=== PATIENT | female | born 1985 | race Caucasian/White ===

== ENCOUNTER 2022-06-08 07:20 | Outpatient (CLI) | payer BC, SELFPAY ==
--- OUTSIDE RECORDS SUMMARY | 2022-06-08 07:21 | XMS_ITS | Encounter Summary ---
:1985 Author Organization [facility] Address [address] [place] [address] Care Team Providers Name Role Phone Unavailable Primary Care Provider Unavailable Encounter Details Date Type Department Care Team Description 08/05/2013 Hospital Encounter HX [facility] INTERNMED Jhonny Early i, M.D. [address] [place] [phone] (Wo rk) Social History Tobacco Use Types Packs/Day Years Used Date Smoking Tobacco: Never Assessed Sex Assigned at Date Recorded Not on file documented as of this encounter Miscellaneous Notes Miscellaneous - Hannah Early M.D. - 08/05/2013 12:00 AM CST [id number] Cuauhtemoc Patrick [id number] [facility] [address] August 05, 2013 Dear Cuauhtemoc Patrick APPOINTMENT REMINDER: Our record indicates that it is time for you to be seen for an office visit in August. You may call our office at [phone] to schedule an appointment for an allergy recheck. Please disregard this notice if you have already made an appointment. Sincerely, Hannah Early M.D./[facility] Document Id: [id number] documented in this encounter Plan of Treatment Not on filedocumented as of this encounter Visit Diagnoses Not on filedocumented in this encounter
--- OUTSIDE RECORDS SUMMARY | 2022-06-08 07:21 | XMS_ITS | Encounter Summary ---
:1985 Author Organization [facility] Address [address] [place] [address] Care Team Providers Name Role Phone Unavailable Primary Care Provider Unavailable Reason for Visit Reason Comments Other Twisted left knee 11/30/20. Em turner [place] Encounter Details Date Type Department Care Team Description 12/13/2020 Comprehensive Visit Department of [place], Injury Knee Initial Occupational Medicine Taryn Brandon Left (Primary Dx) in [address] [phone] Social History Tobacco Use Types Packs/Day Years Used Date Smoking Tobacco: Never Smokeless Tobacco: Never Tobacco Cessation: Counseling Given: No Sex Assigned at Date Recorded Not on file documented as of this encounter Last Filed Vital Signs Vital Sign Reading Time Taken Comments Blood Pressure 142/71 12/13/2020 9:06 AM CDT Pulse 88 12/13/2020 9:06 AM CDT 88 Temperature 36.8 ??C (98.2 ??F) 12/13/2020 9:06 AM CDT Respiratory Rate - - Oxygen Saturation - - Inhaled Oxygen Concentration - - Weight 122 kg (268 lb 15.4 oz) 12/13/2020 9:06 AM CDT Height 165 cm (5' 4.96) 12/13/2020 9:06 AM CDT Body Mass Index 44.81 12/13/2020 9:06 AM CDT documented in this encounter Consult Notes Birdie Lewis APRN, C.N.P. - 12/13/2020 9:00 AM CDT DATE OF VISIT: 12/13/20 EMPLOYER: [employer] DATE OF INJURY/ILLESS/EXPOSURE: 11/30/2020 POSITION: quality controlleranalytical lead [place] Aretha Darnell is a 35 y.o. female who presents today for evaluation of acute onset left knee pain. She was walking in the facility and slipped on a slippery floor, her knee twisted. She is unsure if she inverted/everted. She did not fall. She had immediate pain in the knee at the time of the incident, and it has failed to resolve. She is about 9 months out from a left knee arthroscopy; to address her meniscus. She had this done at a facility in [place], [place]; I am unable to see these records today. She cannot recall if the issue was with the medial or lateral meniscus. Today, she reports Pain Score: 3/10; Pain Loc: Knee, pain location is midline, surrounding the patella, as well as in the posterior knee. Feels tight, with some aching and stabbing. Pain is best when sitting in a neutral position. If laying, needs to support the knee with a pillow in order to find comfort. Does have increased pain with using the stairs, and notes some sensation of instability. Also hears an audible high pitch sound from the knee at times. She is taking some tylenol/ibuprofen sporadically. Will actively flex and extend after sitting for long periods. Occupational Medicine Consultation Document complete and reviewed, please see scanned document for details. BP 142/71 Pulse 88 Comment: 88 Temp 36.8 ??C Ht 165 cm Wt 122 kg BMI 44.81 kg/m?? Vitals reviewed. Constitutional General: She is not in acute distress. Cardiovascular Rate and Rhythm: Normal rate and regular rhythm. Pulmonary Effort: Pulmonary effort is normal. Musculoskeletal Left knee: Swelling (Trace) present. No deformity, erythema, ecchymosis or bony tenderness. Decreased range of motion (mild reduction in ability actively fully flex). No LCL laxity, MCL laxity or ACL laxity.Abnormal meniscus (lateral). Normal alignment and normal patellar mobility. Instability Tests: Lateral Gustavo test positive. Skin General: Skin is warm and dry. Neurological Mental Status: She is alert and oriented to person, place, and time. Psychiatric Behavior: Behavior normal. Thought Content: Thought content normal. ASSESSMENT / PLAN 1. Injury Knee Initial Left MMI: No PPD: Undetermined Work Related: Yes Acute twisting mechanism, occurred at work when walking on a slippery surface. She has a relatively recent history of left knee surgery, reports arthroscopic procedure to address her meniscus. I am unable to confirm details of the procedure, whether medial/lateral injury, etc. Given the lingering symptoms at this stage, we will have her optimize RICE type modalities, but encouraged her an early follow-up with her surgeon. They can evaluate and determine if further intervention/diagnostics are neededin this case. In the meantime, provided hinged brace for her to use when she periodically ambulates around the facility. Otherwise, much of her job is sedentary, she can engage in her work as she tolerates. Discussed worsening symptoms that will bring the patient back sooner for further evaluation. Work status: full duty. See attached Report of Injury and Illness for full details. The patient indicates understanding of these issues and agrees with the plan. Patient has been instructed to discuss their work status with their supervisor [employer]. 30 total face to face, plus non face to face time, spent today with the patient discussing plan, coordinating future care, explaining return to work procedures and completing return to work documentation. Thank you for letting me be involved in your care. documented in this encounter Plan of Treatment Not on filedocumented as of this encounter Visit Diagnoses Diagnosis Injury Knee Initial Left - Primary documented in this encounter
--- OUTSIDE RECORDS SUMMARY | 2022-06-08 07:21 | XMS_ITS | Clinical Summary ---
:1985 Author Organization [facility] Address [address] [place] [address] Care Team Providers Name Role Phone Unavailable Primary Care Provider Unavailable Source Comments Patient records contain information from all sites at [facility]. For routine questions regarding patient records, call [phone] during business hours, M-F 8:00 AM - 5:00 PM Central Time. Record requests for emergency care only can be directed to [phone] at any time.[facility] Allergies No known active allergies Medications Medication Sig Dispensed Refills Start Date End Date Status FLUoxetine (PROzac) 60 Take 60 mg by 0 Active mg tablet mouth daily. dextroamphetamine-amphe Take 30 mg by 0 Active tamine (ADDERALL) 30 mg mouth daily. 2 tablet tabs daily mirtazapine (REMERON) Take 30 mg by 0 Active 30 mg tablet mouth at bedtime. Immunizations Name Administration Dates Next Due Influenza, Unspecified 06/02/2013 Social History Tobacco Use Types Packs/Day Years Used Date Smoking Tobacco: Never Smokeless Tobacco: Never Tobacco Cessation: Counseling Given: No Sex Assigned at Date Recorded Not on file Last Filed Vital Signs Vital Sign Reading [...] Mass Index 44.81 12/13/2020 9:06 AM CDT Plan of Treatment Health Maintenance Due Date Last Done Comments Cervical Cancer Screening 1985 HIV Screening 1985 Hepatitis B Vaccines (1 of 1985 3 - 3-dose series) Hepatitis C Screening 1985 Lipid (Cholesterol) 1985 Screening Depression Screening 07/29/2021 (Annual PHQ-2) DTaP,Tdap,and Td Vaccines 02/17/2025 02/17/2015, 01/20/2009 , (8 - Td or Tdap) 02/12/1991, Additional history exists COVID-19 Vaccine Completed 05/04/2022, 08/18/2021, 10/27/2020, Additional history exists Influenza Vaccine Completed 05/04/2022, 04/13/2021, 06/30/2020, Additional history exists Pneumococcal vaccine (0-64 Aged Out No lo nger eligible years) based on patient 's age to complete this topic Insurance Payer Benefit Plan / Subscriber ID Effective Phone Address T e Group Dates [employer] TRA[employer] [id number] 2020-Prese [address] [place] [place] [id number] [place] [address]
--- OUTSIDE RECORDS SUMMARY | 2022-06-08 07:21 | XMS_ITS | Encounter Summary ---
:1985 Author Organization [facility] Address [address] [place] [address] Care Team Providers Name Role Phone Unavailable Primary Care Provider Unavailable Encounter Details Date Type Department Care Team Description 06/02/2013 Hospital Encounter HX [facility] INTERNMED Jhonny Early i, M.D. [address] [place] [phone] (Wo rk) Social History Tobacco Use Types Packs/Day Years Used Date Smoking Tobacco: Never Assessed Sex Assigned at Date Recorded Not on file documented as of this encounter Progress Notes Hannah Early M.D. - 06/02/2013 3:00 PM CST [id number] Chief Complaint: Chief Complaint Patient presents with Allergy Consult History of Present Illness: The patient is a 27-year-old female who presents for consultation as requested by her PCP who she calls Dr. Woodard (of the [facility]) for initial allergy evaluation. The patient has been having ongoing difficulty with sneezing, rhinorrhea, postnasal drainage, nasal congestion, sinus pressure, loss of smell, itchy watery swollen eyes. She feels that these symptoms have really been a problem as long as she can remember, but they were manageable until she moved into an apartment about six months ago. In this apartment there was some mold growth which correlated withworsening of her allergy symptoms. She did move out of the home approximately one week ago and has felt that her symptoms are starting to improve. In the meantime she had briefly used Flonase 2 sprays to each nostril once daily, but only for approximately one week at which point she had moved out of the apartment with the mold and stopped using the nasal spray due to symptomatic improvement. She has also been using oral antihistamines which are only partially effective. Singulair as well was only partially effective. She says that she took an oral course of steroids x1 week which did help a lot, but then the symptoms came back. The steroids were prescribed approximately one month ago. The patient identifies triggers of her symptoms to include house dust, mold, change in temperature, windy days, strong smells, smoke. She says sometimes cats seem to bother her, but other times not really. PCN/ISAIAH/ina Past Medical History: Past Medical History Diagnosis Date Allergic rhinitis Depression Vitamin D deficiency Problem List: There is no problem list on file for this patient. Past Surgical History: has past surgical history that includes tonsillectomy (1995). Current Medications: Current Outpatient Prescriptions Medication Status Sig citalopram (CELEXA) 20 MG tablet Active Take 20 mg by mouth daily Cholecalciferol (VITAMIN D PO) Active 25,000 units per week. loratadine (CLARITIN) 10 MG capsule Active Take 10 mg by mouth daily DiphenhydrAMINE HCl (BENADRYL ALLERGY PO) Active Homeopathic Products (ZICAM ALLERGY RELIEF NA) Active fluticasone (VERAMYST) 27.5 MCG/SPRAY nasal spray Active [place] 2 sprays into both nostrils daily Allergies: No Known Allergies Past Social History: reports that she has never smoked. She does not have any smokeless tobacco history on file. She reports that she drinks about one ounce of alcohol per week. She reports that she does not use illicit drugs. Family History: family history includes Allergies in her paternal grandmother; C.A.D. in her father;Connective Tissue Disorder in her father; Diabetes in her father; and Neurological in her mother. Environmental History: House Type: House (in an apartment x 6 months until recently) Length of Occupancy: 1 week Age of Home: 25 years Heating Type: forced air Air Conditioner Type: central a/c Carpeting: lyoa-rm-lhew throughout Pets: +1 dog with run of house and sleeps with patient Bedding: +down pillow and comforter Basement: none REVIEW OF SYSTEMS: Constitutional Symptoms: denies fever, chills, unintentional weight change, fatigue Eyes: denies ocular pain, discharge, +itchy/watery eyes as per HPI Ears: denies hearing change, tinnitus Nose: +nasal congestion, rhinorrhea, sinus pressure, loss of smell per HPI Throat: denies sore throat, +post nasal drip Cardiovascular: denies chest pain, dyspnea on exertion, paroxysmal nocturnal dyspnea, lower extremity edema Resp: denies shortness of breath, cough, chest tightness, wheezing GI: denies heartburn, dysphagia, abdominal pain, nausea, vomiting, change in bowel habits Heme/Immuno: denies easy bruising, difficulty with prolonged bleeding, frequent infection Psych: + h/o depression Skin: denies any rash, new lesions Vital Signs: BP 132/88 Pulse 64 Temp 97.9 ??F (36.6 ??C) (Temporal) Ht 1.613 m (5' 3.5) Wt 114.1 kg (251 lb 8.7 oz) BMI 43.85 kg/m2 Physical Exam: Constitutional: alert, in no apparent distress Head: normocephalic, atraumatic, no sinus tenderness Eyes: no lid edema, no conjunctival injection Ear: canals clear, TMs intact without fluid bilaterally Nose: septum midline, moist mucosa, no discharge, severe inferior turbinate hypertrophy with septal contact on left, no polyps appreciated Throat: moist mucosa, no lesions, +post nasal drip, no tonsillar enlargement, no exudates Neck: supple, no adenopathy Cardiovascular: regular rate, rhythm, no murmurs appreciated Respiratory: clear to auscultation bilaterally, no wheezes, rales, rhonchi Gastrointestinal: soft, nontender, nondistended, normal bowel sounds Ext: no edema Skin: no suspicious lesions, rashes, or induration, negative dermatographia Psychiatric: mood, affect, and mentation within normal limits Hematologic/Lymphatic/Immunologic: no cervical or supraclavicular lymphadenopathy Diagnostics: Outpatient Encounter Prescriptions as of 06/02/2013 Medication Status Sig Dispense Refill citalopram (CELEXA) 20 MG tablet Active Take 20 mg by mouth daily Cholecalciferol (VITAMIN D PO) Active 25,000 units per week. loratadine (CLARITIN) 10 MG capsule Active Take 10 mg by mouth daily DiphenhydrAMINE HCl (BENADRYL ALLERGY PO) Active fluticasone (VERAMYST) 27.5 MCG/SPRAY nasal spray Active [place] 2 sprays into both nostrils daily olopatadine (PATANOL) 0.1 % ophthalmic solution Active Place 1 drop into both eyes 2 times daily asneeded for allergies 5 mL 3 Homeopathic Products (ZICAM ALLERGY RELIEF NA) Discontinued Orders Placed This Encounter Procedures ALLERGY SKIN TESTS,ALLERGENS Skin Testing (06/02/13): Skin prick testing performed to environmental allergens demonstrated positive reaction to Molds (Alternaria Alternata, Aspergillus Fumigatus), Dust Mite with appropriate positive histamine control response. Please see scanned skin prick testing form for details. Assessment: 1. Allergic rhinitis (477.9) ALLERGY SKIN TESTS,ALLERGENS 2. Allergic conjunctivitis (372.14) olopatadine (PATANOL) 0.1 % ophthalmic solution Plan: 1. Allergic rhinitis: The patient's history correlates very well with her recent allergic flare due to sensitivity to molds and dust mite. There may be some element of chronic non-allergic rhinitis given her flare of symptoms in the presence of strong smells and smoke. At this time she does demonstrate significant nasal inflammation on exam. I have thus instructed her to restart use of Flonase 2 sprays to each nostril once daily. The patient was educated in the optimal technique in the use of nose spray. She was also educated regarding environmental control measures for reduction of dust mite exposure. She was additionally provided with printed information with this regard. 2. Allergic conjunctivitis: The patient seems to be generally asymptomatic right now, but may use Patanol eye drops twice daily as needed. All of the above was discussed with the patient and all of her questions were answered. We will planfor follow up of her treatment response in approximately 3 months, sooner as needed. KATIE/ISAIAH/ina Source: [facility] Document Id: [id number] Electronically signed by Bianka, [facility] Improvement Analyst [id number] at 12/24/2016 2:25 PM CDT Quan Almonte L.PSharriN. - 06/02/2013 3:00 PM CST [id number] Cuauhtemoc Patrick is a 27 year old female. Patient received: FLUZONE INJECTION Patient Questionaire: Did you receive a flu vaccine last year? I have a fever or feel ill today? No I have an allergy to eggs, gelatin or thimerosal? No I have had a reaction to the flu vaccine the past? No I have had Guillain-[place] syndrome? No I have a Latex Allergy? No VIS information given yes Source: [facility] Document Id: [id number] Electronically signed by Bianka, [facility] Improvement Analyst [id number] at 12/24/2016 2:25 PM CDT documented in this encounter Plan of Treatment Not on filedocumented as of this encounter Visit Diagnoses Not on filedocumented in this encounter
[2022-06-08 10:17] LABS: Vitamin D 25 Hydroxy* 23 ng/mL (30-80)
[2022-06-08 10:29] LABS: Albumin* 4.3 g/dL (3.3-5.0); Chloride* 104 mmol/L (96-114)
[2022-06-08 10:30] LABS: Potassium* 4.4 mmol/L (3.6-5.1); Sodium* 138 mmol/L (135-149)
[2022-06-08 10:32] LABS: Alkaline Phosphatase* 73 U/L (40-150); Aspartate Amino Transferase* 38 U/L (12-35); Bilirubin Total* 0.3 mg/dL (0.1-1.5); Blood Urea Nitrogen* 16 mg/dL (5-24); Calcium* 9.2 mg/dL (8.4-10.6); Carbon Dioxide* 27 mmol/L (20-32); Cholesterol* 235 mg/dL (90-199); Creatinine* 0.9 mg/dL (0.5-1.5); Estimated Glomerular Filt Rate 85 ml/min; Glucose* 104 mg/dL (60-115); Total Protein* 6.7 g/dL (6.0-8.3); Triglycerides* 147 mg/dL (40-149)
[2022-06-08 10:33] LABS: Alanine Aminotransferase* 42 U/L (4-35); HDL Cholesterol* 39 mg/dL (>=50); LDL Cholesterol Calculated 167 mg/dL (<100)
[2022-06-08 10:35] LABS: Ferritin* 81.4 ng/mL (6.24-137.0)
[2022-06-08 11:22] LABS: Vitamin B12* 520 pg/mL (243-894)
== END 2022-06-08 07:21 | disposition home or self-care (01) ==
LOC: NFLDREF 07:20
PROVIDERS: PCP Family Medicine; Visit Provider Family Medicine
DX: R53.83 Other fatigue (principal); Z13.6 Encounter for screening for cardiovascular disorders; Z13.0 Encounter for screening for diseases of the blood and blood-forming organs and certain disorders involving the immune mechanism
CPT/HCPCS: 80053; 80061; 82306; 82607; 82728; 84443

== ENCOUNTER 2023-11-18 07:35 | Outpatient (CLI) | payer BC, SELFPAY | END 2023-11-18 07:36 | disposition home or self-care (01) | LOC: NFLDREF 11-20 07:36 | PROVIDERS: PCP Family Medicine; Referring Provider Family Medicine; Visit Provider Family Medicine | DX: E55.9 Vitamin D deficiency, unspecified (principal); E66.01 Morbid (severe) obesity due to excess calories; E78.5 Hyperlipidemia, unspecified | CPT/HCPCS: 80053; 80061; 82306 ==

== ENCOUNTER 2024-06-16 08:15 | Outpatient (RCR) | payer BC, SELFPAY | END 2024-09-30 15:36 | disposition home or self-care (01) | PROVIDERS: PCP Family Medicine; Visit Provider Family Medicine | DX: M54.50 Low back pain, unspecified (principal); Z51.89 Encounter for other specified aftercare | CPT/HCPCS: 97110; 97140; 97162 ==

== ENCOUNTER 2024-10-06 07:30 | Outpatient (CLI) | payer BC, SELFPAY | END 2024-10-06 07:31 | disposition home or self-care (01) | LOC: NFLDREF 10-07 08:46 | PROVIDERS: PCP Family Medicine; Referring Provider Family Medicine; Visit Provider Family Medicine | DX: E55.9 Vitamin D deficiency, unspecified (principal); R79.89 Other specified abnormal findings of blood chemistry; E78.5 Hyperlipidemia, unspecified; R73.9 Hyperglycemia, unspecified; M81.0 Age-related osteoporosis without current pathological fracture | CPT/HCPCS: 80053; 80061; 82306 ==

== ENCOUNTER 2024-10-16 07:12 | Outpatient (CLI) | payer BC, SELFPAY ==
--- NOTE | 2024-10-16 07:15 | CRLHL7_ITS ---
For Patients: As a result of the Century Cures Act, medical imaging exams and procedure reports are released immediately into your electronic medical record. You may view this report before your referring provider. If you have questions, please contact your health care provider. INDICATION: Low back pain. COMPARISON: 06/02/2024. Technique Sagittal T1, T2, and STIR sequences. Axial T1 and T2 weighted sequences. FINDINGS: Normal vertebral body alignment. No fractures. No vertebral body loss of height. No spondylolisthesis. No evidence injury. No suspicious osseous lesions. Normal conus terminates at L1. T12-L1 L1-2 L2-3: No spinal canal neural foraminal narrowing. L3-4: No spinal canal or neural foraminal narrowing. L4-5: Mild disc degeneration. Shallow right paracentral disc protrusion measures approximately 3 mm in short axis. No narrowing of the spinal canal. No neural foraminal narrowing. L5-S1: Disc degeneration and loss disc height. Diffuse disc bulge. Superimposed central disc protrusion measured approximately 4 millimeters in short axis. There is a superimposed left paracentral disc extrusion measuring 10 mm in diameter with 10 mm of caudal migration (best seen on series 2, image 9). Mild narrowing of spinal canal. Potential impingement of the traversing left S1 and S2 nerve roots. No neural foraminal narrowing. Normal visualized SI joints. Normal perispinal soft tissues. IMPRESSION: 1. Normal alignment. No fractures. 2. At L4-5, shallow right paracentral disc protrusion. No spinal canal or neural foraminal narrowing. 3. At L5-S1, disc degeneration. Diffuse disc bulge. Central disc protrusion with a superimposed left paracentral disc extrusion with caudal migration. Mild narrowing of the spinal canal. Potential impingement of the traversing left S1 and S2 nerve roots Dictated by Froylan Reyes MD @ 10/17/2024 9:56:48 AM (Electronically Signed)
== END 2024-10-16 07:13 | disposition home or self-care (01) ==
LOC: MRI 07:13
PROVIDERS: PCP Family Medicine; Visit Provider Family Medicine
DX: M54.50 Low back pain, unspecified (principal); M51.26 Other intervertebral disc displacement, lumbar region; M51.379 Other intervertebral disc degeneration, lumbosacral region without mention of lumbar back pain or lower extremity pain
CPT/HCPCS: 72148

== ENCOUNTER 2024-12-14 07:30 | Outpatient (RCR) | payer BC, SELFPAY | END 2025-04-13 23:59 | disposition home or self-care (01) | PROVIDERS: PCP Family Medicine; Visit Provider Family Medicine | DX: M54.50 Low back pain, unspecified (principal); Z51.89 Encounter for other specified aftercare | CPT/HCPCS: 97110; 97140; 97162 ==